=== PATIENT | female | born 1975 | race Caucasian/White ===

== ENCOUNTER 2022-07-24 19:37 | Emergency (ER) | payer MEDICAID, SELFPAY ==
[2022-07-24 19:39] VITALS: BP 144/84; PULSE 108; RESP 20; TEMP 36.7; O2SAT 97; BMI 34.1
[2022-07-24 21:40] LABS: Basophils # 0.1 K/mm3 (0-0.2); Eosinophils # 0.2 K/mm3 (0.0-0.4); Hematocrit 42.3 % (37.0-47.0); Hemoglobin 14.3 g/dL (12.2-16.2); Lymphocytes # 2.8 K/mm3 (0.7-4.5); Lymphocytes % 38.5 % (10-50); Mean Corpuscular HGB Conc 33.7 g/dL (31.8-35.4); Mean Corpuscular Hemoglobin 31.3 pg (27.0-31.2); Mean Corpuscular Volume 92.9 fl (81-99); Mean Platelet Volume 7.8 fl (7.4-10.4); Monocytes # 0.4 K/mm3 (0.1-1.0); Monocytes % 5.2 % (1.7-9.3); Neutrophils # 3.8 K/mm3 (1.8-7.8); Neutrophils % 53.2 % (37.0-80.0); Platelet Count 375 K/mm3 (142-424); Red Blood Count 4.56 M/mm3 (4.20-5.40); Red Cell Distribution Width 13.7 % (11.5-17.5); White Blood Count 7.2 K/mm3 (4.8-10.8)
[2022-07-24 21:44] LABS: Lactic Acid 1.8 mmol/L (0.7-2.1)
[2022-07-24 21:45] LABS: Alanine Aminotransferase 19 U/L (12-78); Albumin Level 3.8 g/dl (3.5-5.0); Albumin/Globulin Ratio 1.2 (1.1-1.8); Alkaline Phosphatase 122 U/L (38-126); Anion Gap 13.2 mEq/L (5-15); Aspartate Amino Transferase 22 U/L (14-36); Bilirubin,Total < 0.1 mg/dl (0.2-1.3); Blood Urea Nitrogen 13 mg/dl (7-17); Calcium 8.6 mg/dl (8.4-10.2); Carbon Dioxide 34 mmol/L (22.0-30.0); Chloride 93 mmol/L (98-107); Creatinine Clearance Estimated 107 mL/min (50-200); Estimated Glomerular Filt Rate 59 ml/min (>60); GFR (African American) 72 ML/MIN (>60); Globulin 3.1 g/dL (1.3-3.2); Glucose 121 mg/dl (74-100); Potassium 3.2 mmoL/L (3.5-5.1); Sodium 137 mmol/L (136-145); Total Protein,Serum 6.9 g/dl (6.3-8.2)
--- NOTE | 2022-07-24 21:57 | [facility].EDSKAF ---
Discharge Plan Disposition Chief Complaint: Skin/Abscess/Foreign Body Referrals Follow up/Referrals: Dianna Henson MD [Primary Care Provider] - See instructions Clinical Impressions Clinical Impression: Post surgical complication, Abscess of skin or subcutaneous tissue Instructions Patient Instructions: How to Change a Wet to Dry Wound Dressing, DI for Skin Abscess Discharge ED Provider: David Baldwin Skin/Abscess/FB HPI General Chief complaint: Skin/Abscess/Foreign Body Stated complaint: Surg under L arm open wound and infection Time Seen by Provider: 07/24/22 21:57 Mode of Arrival: Family Vehicle Source of Information: Patient and Relative Limitations: Altered Mental Status Description of Symptoms (Recalled from ER Triage Doc. by RN): Pt c/o L axilla infection. She reports she had surgery to remove an infected sweat gland. She had been packing it wet/dry dressing changes. since post op. States that last week it started to double in size and having trouble getting the packing to stay in. Her surgeon sent in bactrim on Mon (07/20). Today, pt developed redness and ylw drainage from the site. She c/o pain and swelling surrounding the site. Denies fever or chills. History of Present Illness HPI narrative: recent lt axilla surg about 2 weeks ago and has been seen by her rheu who thought might be infected and pt removed sutures - pt has drainage and reports surg site opened up and was seen at [facility] - pt discussed with her surg office who recommended wet-dry and will see this week - no fever and is on abx complaint: other (post-surg ) Onset (ago): day(s) Severity: moderate Context: other (recent surg ) Treatments prior to arrival: antibiotic Related Data Allergies Allergy/AdvReac Type Severity Reaction Status Date / Time permethrin Allergy Verified 07/24/22 20:40 PFSH PFSH Social History Smoking Status: Current every day smoker alcohol intake: never current occupational status: employed Travel in the last 8 weeks: None ROS Obtained: Yes All systems reviewed & no additional complaints except as documented Physical Exam General General appearance: alert Head Head exam: normocephalic Eye Eye exam: Present PERRL and EOMI ENT ENT exam: Present mucous membranes moist Neck Neck exam: Present trachea midline Respiratory Respiratory exam: Absent respiratory distress Cardiovascular Cardiovascular exam: Present regular rate Abdominal Exam Abdominal exam: Present soft Extremities Exam Extremities exam: Present full ROM Neurological Exam Neurological exam: Present alert and CN II-XII intact Skin Skin exam: Present other (has open area lt axilla which some drainage but looks ok and no smell ) Medical Decision Making Medical Records Medical records reviewed: Yes I reviewed the patient's medical records. Familia Inquiry Pt receiving controlled substance: No Vital Signs: 07/24/22 19:39 07/24/22 22:33 07/24/22 23:01 Temperature 98.0 F Temperature Source Oral Pulse Rate 96 H Pulse Rate [Right] 108 H Respiratory Rate 20 Blood Pressure 116/64 92/49 L Blood Pressure [Right Arm] 144/84 H Blood Pressure Mean 63 Blood Pressure Mean [Right Arm] 104 Blood Pressure Source [Right Arm] Automatic Cuff 02 Sat by Pulse Oximetry 97 94 L 93 L Oxygen Delivery Method Room Air Room Air Room Air Lab Data Lab results reviewed: Yes I reviewed the patient's lab results. Lab Results 07/24/22 21:17: WBC 7.2, RBC 4.56, Hgb 14.3, Hct 42.3, MCV 92.9, MCH 31.3 H, MCHC 33.7, RDW 13.7, Plt Count 375, MPV 7.8, Neut % (Auto) 53.2, Lymph % (Auto) 38.5, [place] % (Auto) 5.2, Eos % (Auto) 2.0, Baso % (Auto) 1.0, Neut # (Auto) 3.8, Lymph # (Auto) 2.8, [place] # (Auto) 0.4, Eos # (Auto) 0.2, Baso # (Auto) 0.1 07/24/22 21:17: Sodium 137, Potassium 3.2 L, Chloride 93 L, Carbon Dioxide 34 H, Anion Gap 13.2, BUN 13, Creatinine 1.00, Estimated Creat Clear 107, Estimated GFR 59, Est GFR ( Amer) 72, Gluco
[2022-07-24 22:33] VITALS: BP 116/64; PULSE 96; O2SAT 94
--- NOTE | 2022-07-24 22:33 | PC.NURSE ---
Pt resting in bed with lights off. No needs voiced at this time.
[2022-07-24 23:01] VITALS: BP 92/49; O2SAT 93
--- NOTE | 2022-07-24 23:15 | PC.NURSE ---
verbal order from Dr. Baldwin for Morphine 4mg IVP 1x to give prior to packing and dressing change.
--- NOTE | 2022-07-25 00:03 | PC.WOUNDNOTE ---
Patient presented to ER with wound under her left arm in the axilla area. Patient states that she had surgery 2 weeks ago to remove an infected sweat gland. Patient wound was covered in gauze upon arrival. Dressing was changed using wet do dry technique. Wound was cleaned under the arm, packing strips saturated in normal saline were packed into the wound using a sterile cotton swab using sterile technique. After wound was packed it was covered in a non-adhesive dressing and paper tape (paper tape per patients request). Patient tolerated procedure well.
[2022-07-25 00:37] VITALS: BP 98/55; PULSE 89; RESP 18; TEMP 36.6; O2SAT 99
== END 2022-07-25 00:40 | disposition home or self-care (01) ==
PROVIDERS: Emergency Provider Emergency Medicine; PCP Family Medicine
DX: G97.82 Other postprocedural complications and disorders of nervous system (principal); L02.412 Cutaneous abscess of left axilla; B96.89 Other specified bacterial agents as the cause of diseases classified elsewhere; Y83.8 Other surgical procedures as the cause of abnormal reaction of the patient, or of later complication, without mention of misadventure at the time of the procedure; Z91.048 Other nonmedicinal substance allergy status
CPT/HCPCS: 80053; 83605; 85025; 87040; 87070; 87077; 87186; 87205; 96365; 96366; 96375; 99284; J2405; J3370